=== PATIENT | male | born 1955 | race Two or more races ===

== ENCOUNTER 2023-05-27 07:37 | Inpatient (IN) | payer OTHER ==
[~2023-05-27] VITALS: Ht 152.4 cm; Wt 53.1 kg
[2023-05-30] MEDS ORDERED: OMEPRAZOLE20 MG (11:20)
[2023-05-30] MEDS ORDERED: ABATINEX680 MG (11:20)
[2023-05-30] MEDS ORDERED: TAMSULOSIN HCL0.4 MG (11:20)
[2023-06-08] MEDS ORDERED: NICOTINE PATCH1 EACH TD (13:53)
[2023-06-08] MEDS ORDERED: AMLODIPINE BESYL5 MG PO (13:53)
== END 2023-06-08 15:42 | disposition home or self-care (01) | DRG 330 ==
LOC: ER 07:37 → MEDI 16:31
PROVIDERS: Surgery; ADMIT Internal Medicine; ATTEND Internal Medicine
PROC: BW21YZZ Computerized Tomography (CT Scan) of Abdomen and Pelvis using Other Contrast (ICD-10-PCS; 2023-05-27)
PROC: BB24ZZZ Computerized Tomography (CT Scan) of Bilateral Lungs (ICD-10-PCS; 2023-05-27)
PROC: B020ZZZ Computerized Tomography (CT Scan) of Brain (ICD-10-PCS; 2023-05-27)
PROC: 0DBM8ZX Excision of Descending Colon, Via Natural or Artificial Opening Endoscopic, Diagnostic (ICD-10-PCS; 2023-05-30)
PROC: 3E0H8KZ Introduction of Other Diagnostic Substance into Lower GI, Via Natural or Artificial Opening Endoscopic (ICD-10-PCS; 2023-05-30)
PROC: 0DTM4ZZ Resection of Descending Colon, Percutaneous Endoscopic Approach (ICD-10-PCS; 2023-05-31)
PROC: 07BB4ZZ Excision of Mesenteric Lymphatic, Percutaneous Endoscopic Approach (ICD-10-PCS; 2023-05-31)
PROC: 0DJD8ZZ Inspection of Lower Intestinal Tract, Via Natural or Artificial Opening Endoscopic (ICD-10-PCS; 2023-05-31)
PROC: 0DTN4ZZ Resection of Sigmoid Colon, Percutaneous Endoscopic Approach (ICD-10-PCS; principal; 2023-05-31 11:45)
PROC: BW21YZZ Computerized Tomography (CT Scan) of Abdomen and Pelvis using Other Contrast (ICD-10-PCS; 2023-06-01)
PROC: 0B9L3ZX Drainage of Left Lung, Percutaneous Approach, Diagnostic (ICD-10-PCS; 2023-06-02)
PROC: 0F903ZX Drainage of Liver, Percutaneous Approach, Diagnostic (ICD-10-PCS; 2023-06-02)
PROC: 0W9B30Z Drainage of Left Pleural Cavity with Drainage Device, Percutaneous Approach (ICD-10-PCS; 2023-06-03)
DX: C18.7 Malignant neoplasm of sigmoid colon (principal); C34.12 Malignant neoplasm of upper lobe, left bronchus or lung; C78.7 Secondary malignant neoplasm of liver and intrahepatic bile duct; J95.811 Postprocedural pneumothorax; K63.5 Polyp of colon; R59.0 Localized enlarged lymph nodes; K57.30 Diverticulosis of large intestine without perforation or abscess without bleeding; K83.4 Spasm of sphincter of Oddi; J43.2 Centrilobular emphysema; R10.32 Left lower quadrant pain; K70.30 Alcoholic cirrhosis of liver without ascites; I10 Essential (primary) hypertension; F17.210 Nicotine dependence, cigarettes, uncomplicated; F10.20 Alcohol dependence, uncomplicated; Y90.9 Presence of alcohol in blood, level not specified